=== PATIENT | female | born 1970 | race Caucasian/White ===

== ENCOUNTER 2017-08-17 16:09 | Emergency (ER) | payer BC ==
[~2017-08-17] VITALS: Ht 162.6 cm; Wt 81.7 kg
[~2017-08-17 16:09] MED LIST: CYCLOBENZAPRINE10 MG PO; NAPROXEN500 MG PO
--- NOTE | 2017-08-17 23:50 | EKG ---
[facility] [address] [facility] [place] [address] Signed Sinus tachycardia Inferior infarct , age undetermined Cannot rule out Anterior infarct , age undetermined Abnormal ECG No previous ECGs available Confirmed by OBED RICHARDSON MD ([id number]) on 08/17/2017 11:50:38 PM Electronically Signed By: OBED RICHARDSON MD 08/17/17 2350 PATIENT NAME: JOSIE RIVERA RACHEL Electrocardiogram DATE OF : 70 PHYSICIAN: OBED RICHARDSON MD REPORT #: [id number] REPORT IS CONFIDENTIAL AND NOT TO BE RELEASED WITHOUT AUTHORIZATION
== END 2017-08-17 20:13 | disposition home or self-care (01) ==
LOC: ED 16:09
DX: R07.9 Chest pain, unspecified (principal); F17.200 Nicotine dependence, unspecified, uncomplicated; Z79.899 Other long term (current) drug therapy
CPT/HCPCS: 71046; 80053; 84484; 85025; 85379; 93005; 93010; 96374; 99284; J1885